=== PATIENT | female | born 1960 | race Hispanic/Latino ===

== ENCOUNTER 2017-03-16 15:27 | Emergency (ER) | payer OTHER ==
[2017-03-16] MEDS ORDERED: IPRATROPIUM/ALBUTEROL SULFATE 3 ML SOLUTION IH ONE (16:33)
== END 2017-03-16 17:21 | disposition home or self-care (01) ==
LOC: EDH 15:27
DX: J01.10 Acute frontal sinusitis, unspecified (principal); R05 Cough; E11.9 Type 2 diabetes mellitus without complications; E07.9 Disorder of thyroid, unspecified; Z88.0 Allergy status to penicillin; Z88.2 Allergy status to sulfonamides; Z87.891 Personal history of nicotine dependence; Z79.899 Other long term (current) drug therapy
CPT/HCPCS: 94640